=== PATIENT | female | born 2000 | race Caucasian/White ===

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

== ENCOUNTER 2022-01-11 19:02 | Emergency (ER) | payer OTHER, SELFPAY ==
[2022-01-11] VITALS (7 sets, daily range): BP systolic 114–141; BP diastolic 77–104; PULSE 99–127; RESP 22; TEMP 36.3; O2SAT 95–100; BMI 29.2
--- NOTE | 2022-01-11 19:33 | PC.NURSE ---
pt states she didn't think of how to kill herself before but would have dreams of jumping.
[2022-01-11 20:04] LABS: Add Manual Diff / Slide Review NO; Basophils Absolute Auto 0 /uL (0-100); Basophils Percent Auto 0.2 % (0-2); Eosinophils Absolute Auto 100 /uL (0-450); Eosinophils Percent Auto 0.6 % (2-4); Hematocrit 39.2 % (36-46); Hemoglobin 13.7 g/dL (12.0-16.0); Lymphocytes Absolute Auto 700 /uL (1100-4500); Lymphocytes Percent Auto 3.9 % (25-40); Mean Corpuscular Hemoglobin 29.4 PG (26-34); Monocytes Absolute Auto 800 /uL (0-900); Monocytes Percent Auto 4.3 % (3-14); Neutrophils Absolute Auto 16300 /uL (1500-7000); Platelet Count 208 X10^3/uL (150-400); Red Blood Cell Count 4.67 X10^6/uL (4.0-5.2); Red Cell Distribution Width 12.7 % (11.6-14.8); White Blood Cell Count 17.9 X10^3/uL (4.5-11.0)
--- NOTE | 2022-01-11 20:22 | PC.NURSE ---
spoke with poison control. said to do labs and ekg, said watch time for adderall was 8hours and sertraline was 6-12hours.
[2022-01-11 20:26] LABS: Acetaminophen < 10 ug/mL (10-30); Alanine Aminotransferase 27 IU/L (<35); Albumin 4.4 g/dL (3.5-5.0); Albumin Globulin Ratio 1.1 (1.0-2.8); Alkaline Phosphatase 55 U/L (38-126); Aspartate Aminotransferase 34 IU/L (14-36); BUN Creatinine Ratio 16.7 (6-22); Bilirubin Total 1.6 mg/dL (0.2-1.3); Blood Urea Nitrogen 12 mg/dL (7-17); Calcium 9.6 mg/dL (8.4-10.2); Carbon Dioxide 22 mmol/L (22-32); Chloride 104 mmol/L (98-107); Estimated Glomerular Filt Rate > 60 mL/min (>60); Ethanol (ETOH) < 10 mg/dL; Glucose 119 mg/dL (70-100); HEMOLYSIS < 15 (0-50); Potassium 3.9 mmol/L (3.4-5.1); Salicylate < 1.0 mg/dL (<20); Sodium 137 mmol/L (137-145); Total Protein 8.4 g/dL (6.3-8.2)
[2022-01-11 20:56] LABS: Thyroid Stimulating Hormone 0.679 uIU/mL (0.47-4.68)
--- NOTE | 2022-01-11 21:54 | ED_ITS ---
HPI - Psych General Chief Complaint: Psychiatric Symptoms Stated Complaint: OD on ADHD meds and antidepressants Time Seen by Provider: 01/11/22 19:43 Source: patient Mode of arrival: Ambulatory Limitations: no limitations History of Present Illness HPI Narrative: Patient is a 21-year-old female who is brought to the emergency department by her mom and dad for evaluation of an intentional medication overdose. Patient states that earlier today she was caught at home with her boyfriend. She does live with her parents. She was concerned about the way that her parents were going to act to this. She thought she was going to get kicked out of the house. She started packing her stuff and saw her pills. She then took an unknown amount of her Adderall and also her sertraline. These were her medications. She is unsure as to how much she took of each. She still has a half a bottle the sertraline at home. She did this at approximately 1000 hours this morning. She denies any other ingestions. No alcohol. She is never tried to kill herself in the past. These medications are prescribed by her primary doctor. She is not see a mental health professional. Has never been admitted to the hospital in the past for mental health issues. She started to get lightheaded. Is having nausea. When her mother got home from work she told her mother what she did and she was brought to the emergency department. Related Data Home Medications Medication Instructions Recorded Confirmed bismuth subsalicylate 525 mg/15 mL ##0 10/16/12 oral suspension (Pepto-Bismol Max St) Allergies Allergy/AdvReac Type Severity Reaction Status Date / Time No Known Drug Allergies Allergy Verified 12/20/17 19:17 Review of Systems Review of Systems ROS Unobtainable: All systems reviewed & are unremarkable except as noted in HPI and below Patient History Medical History ADHD Social History Smoking Status: Never smoker Smoking Status: Never smoker Substance Use Type: does not use Exam Initial Vital Signs Initial Vital Signs: Vital Signs Temperature 97.3 F L 01/11/22 19:16 Pulse Rate 124 H 01/11/22 19:16 Respiratory Rate 22 01/11/22 19:16 Blood Pressure 134/88 01/11/22 19:16 Pulse Oximetry 100 01/11/22 19:16 Oxygen Delivery Method 01/11/22 19:16 Const General: cooperative and comfortable HENMT Head: normal to inspection and normocephalic Resp Effort & Inspection: normal respiratory effort Auscultation: clear to auscultation bilaterally Cardio Rate: regular rate Rhythm: regular rhythm GI Inspection: normal to inspection Skin General: no rashes or lesions noted Neuro General: patient alert, patient awake, patient oriented x3 and moves all extremities Cognition: normal cognition Speech: speech normal Extrem General: normal to inspection and capillary refill normal Psych Appearance: grossly normal and well kempt Course Orders Ordered: ED Orders 01/11/22 19:45 Acetaminophen Stat Complete Blood Count AUTO DIFF Stat Comprehensive Metabolic Panel Stat Ethanol (ETOH) Stat Salicylate Stat Thyroid Stimulating Hormone Stat 01/11/22 22:10 Urine Culture Stat Urine Drug Screen, Rapid Stat Urine Microscopic Stat 01/12/22 01:02 COVID19 -Nasal RAPID/Pre-Proc Stat Discontinued Medications Benzocaine (Benzocaine/Menthol 1 José Luis Pkt) 1 each PO NOW ONE Stop: 01/12/22 00:43 Last Admin: 01/12/22 01:00 Dose: 1 each Documented By: KAITLIN Sodium Chloride (Normal Saline 0.9%) 1,000 mls @ 1,000 mls/hr IV BOLUS ONE Stop: 01/12/22 02:39 Last Admin: 01/12/22 02:55 Dose: Not Given Documented By: KAITLIN Ondansetron HCl (Ondansetron 4 Mg Odt) 4 mg SL NOW ONE Stop: 01/11/22 21:55 Last Admin: 01/11/22 22:15 Dose: 4 mg Documented By: OCTAVIO Ondansetron HCl (Ondansetron 4 Mg/2 Ml Inj) 4 mg IV NOW ONE Stop: 01/12/22 01:41 Last Admin: 01/12/22 02:54 Dose: Not Given Documented By: KAITLIN Ondansetron HCl (Ondansetron 4 Mg Odt) 4 mg PO NOW ONE Stop: 01/12/22 01:48 Last Admin: 01/12/22 02:03 Dose: 4 mg Documented By: OCTAVIO Vital Signs Vital signs: Vital Signs - 8 hr 01/11/22 21:34 01/11/22 21:33 01/11/22 21:33 Pulse Rate 122 H 127 H Blood Pressure 141/104 H 141/104 H Pulse Oximetry 96 95 Oxygen Delivery Method Room Air 01/11/22 22:00 01/11/22 22:00 01/11/22 22:32 Pulse Rate 99 H Blood Pressure 138/88 124/78 Pulse Oximetry 99 Oxygen Delivery Method 01/11/22 22:32 01/11/22 23:00 01/11/22 23:00 Pulse Rate 109 H 110 H Blood Pressure 114/80 Pulse Oximetry 96 96 Oxygen Delivery Method 01/11/22 23:30 01/11/22 23:30 01/12/22 00:30 Pulse Rate 100 H Blood Pressure 124/77 137/76 Pulse Oximetry 96 Oxygen Delivery Method 01/12/22 00:30 01/12/22 01:00 01/12/22 01:00 Pulse Rate 87 90 Blood Pressure 118/73 Pulse Oximetry 95 96 Oxygen Delivery Method 01/12/22 01:30 01/12/22 01:30 01/12/22 02:00 Pulse Rate 97 H Blood Pressure 112/76 121/75 Pulse Oximetry 95 Oxygen Delivery Method 01/12/22 02:00 01/12/22 02:30 01/12/22 02:30 Pulse Rate 86 93 H Blood Pressure 109/61 Pulse Oximetry 96 95 Oxygen Delivery Method 01/12/22 03:00 01/12/22 03:00 01/12/22 03:30 Pulse Rate 90 Blood Pressure 114/73 126/74 Pulse Oximetry 95 Oxygen Delivery Method 01/12/22 03:30 Pulse Rate 94 H Blood Pressure Pulse Oximetry 95 Oxygen Delivery Method [facility] - Psych Lab Data Attestation: I reviewed the patient's lab results. Result diagrams: 01/11/22 19:45 01/11/22 19:45 Labs: Lab Results 01/11/22 01/11/22 01/11/22 Range/Units 19:45 19:45 19:45 WBC 17.9 H (4.5-11.0) X10^3/uL RBC 4.67 (4.0-5.2) X10^6/uL Hgb 13.7 (12.0-16.0) g/dL Hct 39.2 (36-46) % MCV 84.0 (80-100) fL MCH 29.4 (26-34) PG MCHC 35.0 (30-36) % RDW 12.7 (11.6-14.8) % Plt Count 208 (150-400) X10^3/uL Neut % (Auto) 91.0 H (50-75) % Lymph % (Auto) 3.9 L (25-40) % [place] % (Auto) 4.3 (3-14) % Eos % (Auto) 0.6 L (2-4) % Baso % (Auto) 0.2 (0-2) % Neut # (Auto) 15501 H (5249-9225) /uL Lymph # (Auto) 700 L (1103-3336) /uL [place] # (Auto) 800 (0-900) /uL Eos # (Auto) 100 (0-450) /uL Baso # (Auto) 0 (0-100) /uL Sodium 137 (137-145) mmol/L Potassium 3.9 (3.4-5.1) mmol/L Chloride 104 (98-107) mmol/L Carbon Dioxide 22 (22-32) mmol/L BUN 12 (7-17) mg/dL Creatinine 0.72 (0.52-1.04) mg/dL Estimated GFR > 60 (>60) mL/min BUN/Creatinine Ratio 16.7 (6-22) Glucose 119 H (70-100) mg/dL Calcium 9.6 (8.4-10.2) mg/dL Total Bilirubin 1.6 H (0.2-1.3) mg/dL AST 34 (14-36) IU/L ALT 27 (<35) IU/L Alkaline Phosphatase 55 (38-126) U/L Total Protein 8.4 H (6.3-8.2) g/dL Albumin 4.4 (3.5-5.0) g/dL Globulin 4.0 (1.7-4.1) g/dL Albumin/Globulin Ratio 1.1 (1.0-2.8) TSH (0.47-4.68) uIU/mL Urine RBC (0-5/HPF) Urine WBC (0-5/HPF) Ur Squamous Epith Cells (0-5/HPF) Urine Bacteria (None) Ur Culture Indicated? Micro UA Comment Salicylates < 1.0 (<20) mg/dL U Opiates 300ng/mL cut (Negative) Ur Oxycodone Screen (Negative) Urine Methadone Screen (Negative) Acetaminophen < 10 (10-30) ug/mL Ur Barbiturates Screen (Negative) U Tricyclic Antidepress (Negative) Ur Phencyclidine Scrn (Negative) Ur Amphetamines Screen (Negative) U Methamphetamines Scrn (Negative) Ur MDMA Scrn (Ecstasy) (Negative) U Benzodiazepines Scrn (Negative) Urine Cocaine Screen (Negative) U Marijuana (THC) Screen (Negative) Ethyl Alcohol < 10 ( - 10) mg/dL SARS-CoV-2 (PCR) (Negative) 01/11/22 01/11/22 01/11/22 Range/Units 19:45 22:10 22:10 WBC (4.5-11.0) X10^3/uL RBC (4.0-5.2) X10^6/uL Hgb (12.0-16.0) g/dL Hct (36-46) % MCV (80-100) fL MCH (26-34) PG MCHC (30-36) % RDW (11.6-14.8) % Plt Count (150-400) X10^3/uL Neut % (Auto) (50-75) % Lymph % (Auto) (25-40) % [place] % (Auto) (3-14) % Eos % (Auto) (2-4) % Baso % (Auto) (0-2) % Neut # (Auto) (3762-2762) /uL Lymph # (Auto) (9759-2470) /uL [place] # (Auto) (0-900) /uL Eos # (Auto) (0-450) /uL Baso # (Auto) (0-100) /uL Sodium (137-145) mmol/L Potassium (3.4-5.1) mmol/L Chloride (98-107) mmol/L Carbon Dioxide (22-32) mmol/L BUN (7-17) mg/dL Creatinine (0.52-1.04) mg/dL Estimated GFR (>60) mL/min BUN/Creatinine Ratio (6-22) Glucose (70-100) mg/dL Calcium (8.4-10.2) mg/dL Total Bilirubin (0.2-1.3) mg/dL AST (14-36) IU/L ALT (<35) IU/L Alkaline Phosphatase (38-126) U/L Total Protein (6.3-8.2) g/dL Albumin (3.5-5.0) g/dL Globulin (1.7-4.1) g/dL Albumin/Globulin Ratio (1.0-2.8) TSH 0.679 (0.47-4.68) uIU/mL Urine RBC 1-5/hpf (0-5/HPF) Urine WBC 10-30/hpf H (0-5/HPF) Ur Squamous Epith Cells 1-5 /hpf (0-5/HPF) Urine Bacteria Many (>30) H (None) Ur Culture Indicated? Culture not indicate Micro UA Comment * Salicylates (<20) mg/dL U Opiates 300ng/mL cut Negative (Negative) Ur Oxycodone Screen Negative (Negative) Urine Methadone Screen Negative (Negative) Acetaminophen (10-30) ug/mL Ur Barbiturates Screen Negative (Negative) U Tricyclic Antidepress Negative (Negative) Ur Phencyclidine Scrn Negative (Negative) Ur Amphetamines Screen Positive H (Negative) U Methamphetamines Scrn Negative (Negative) Ur MDMA Scrn (Ecstasy) Negative (Negative) U Benzodiazepines Scrn Negative (Negative) Urine Cocaine Screen Negative (Negative) U Marijuana (THC) Screen Negative (Negative) Ethyl Alcohol ( - 10) mg/dL SARS-CoV-2 (PCR) (Negative) 01/12/22 Range/Units 01:02 WBC (4.5-11.0) X10^3/uL RBC (4.0-5.2) X10^6/uL Hgb (12.0-16.0) g/dL Hct (36-46) % MCV (80-100) fL MCH (26-34) PG MCHC (30-36) % RDW (11.6-14.8) % Plt Count (150-400) X10^3/uL Neut % (Auto) (50-75) % Lymph % (Auto) (25-40) % [place] % (Auto) (3-14) % Eos % (Auto) (2-4) % Baso % (Auto) (0-2) % Neut # (Auto) (4691-5887) /uL Lymph # (Auto) (2509-0028) /uL [place] # (Auto) (0-900) /uL Eos # (Auto) (0-450) /uL Baso # (Auto) (0-100) /uL Sodium (137-145) mmol/L Potassium (3.4-5.1) mmol/L Chloride (98-107) mmol/L Carbon Dioxide (22-32) mmol/L BUN (7-17) mg/dL Creatinine (0.52-1.04) mg/dL Estimated GFR (>60) mL/min BUN/Creatinine Ratio (6-22) Glucose (70-100) mg/dL Calcium (8.4-10.2) mg/dL Total Bilirubin (0.2-1.3) mg/dL AST (14-36) IU/L ALT (<35) IU/L Alkaline Phosphatase (38-126) U/L Total Protein (6.3-8.2) g/dL Albumin (3.5-5.0) g/dL Globulin (1.7-4.1) g/dL Albumin/Globulin Ratio (1.0-2.8) TSH (0.47-4.68) uIU/mL Urine RBC (0-5/HPF) Urine WBC (0-5/HPF) Ur Squamous Epith Cells (0-5/HPF) Urine Bacteria (None) Ur Culture Indicated? Micro UA Comment Salicylates (<20) mg/dL U Opiates 300ng/mL cut (Negative) Ur Oxycodone Screen (Negative) Urine Methadone Screen (Negative) Acetaminophen (10-30) ug/mL Ur Barbiturates Screen (Negative) U Tricyclic Antidepress (Negative) Ur Phencyclidine Scrn (Negative) Ur Amphetamines Screen (Negative) U Methamphetamines Scrn (Negative) Ur MDMA Scrn (Ecstasy) (Negative) U Benzodiazepines Scrn (Negative) Urine Cocaine Screen (Negative) U Marijuana (THC) Screen (Negative) Ethyl Alcohol ( - 10) mg/dL SARS-CoV-2 (PCR) Negative (Negative) Point of Care Testing Test Results Negative Urine Dip Bedside Urine Glucose Negative Bedside Urine Bilirubin - Negative Bedside Urine Ketone +/- 5 Urine Specific [place] 1.020 Bedside Urine Occult Blood + Bedside Urine pH 6.0 Bedside Urine Protein + 30 Bedside Urine Urobilinogen - Negative Bedside Urine Nitrite + Positive Bedside Urine Leukocytes + 70 Esterase ECG Data Attestation: I personally reviewed and interpreted this ECG as follows: Interpretation: Sinus rhythm Ventricular rate 90 QRS 72 milliseconds QTC [address] T wave changes MDM Narrative Medical decision making narrative: Patient is medically cleared. Nursing staff contacted poison control who stated that observation should be between 6 and 12 hours. Patient has been observed for longer than 12 hours. She was tachycardic upon arrival but this improved. She was also having some vomiting this improved with Zofran. Patient then developed a sore throat. Her throat exam was unremarkable. Had a discussion with her and her parents who were at bedside. Initially they patient was desiring voluntary admission however after a period of time in the ER the patient now states she would like to be discharged home. Patient was able to contract for safety. She stated that she was no longer suicidal. That she felt comfortable going home. That she would tell her parents or return to the emergency department if she started to have thoughts of hurting herself once again. I did contact the [facility] and gave them the patient's contact information and they will call her later on today to check in on her. The patient stated that she felt comfortable with this. Patient will be discharged home with family. Discharge Plan Departure Patient Disposition: Home Clinical Impression: Deliberate medication overdose Activity Restrictions/Additional Instructions: You should be receiving a call from the [facility] later on today at the number that you provided me. This is to check in on you to see how you are feeling. You can return to the emergency department at any point. Please tell your parents or return to the emergency department if you start to have thoughts of hurting yourself again. Prescriptions: No Action bismuth subsalicylate [Pepto-Bismol Max St] 525 MG/15 ML suspension Qty: 0 Referrals: Bridget Billingsley MD [Primary Care Provider] -
--- NOTE | 2022-01-11 22:00 | PC.NURSE ---
Ambulatory to the bathroom with steady gait - clean catch UA collected
[2022-01-11] MEDS: ONDANSETRON 4 MG ODT SL (22:15)
--- NOTE | 2022-01-11 22:15 | PC.NURSE ---
Medicated for nausea - no vomiting noted at this time
[2022-01-11 22:46] LABS: Ur Creatinine 20 (Normal)
[2022-01-11 22:47] LABS: UR Morphine/Opiate cutoff 300 Negative (Negative); Ur Specific Gravity 1.025 (Normal); Urine Amphetamines Positive (Negative); Urine Barbiturates Negative (Negative); Urine Benzodiazepines Negative (Negative); Urine Cocaine Negative (Negative); Urine MDMA Negative (Negative); Urine Methadone Negative (Negative); Urine Methamphetamines Negative (Negative); Urine Oxycodone Negative (Negative); Urine Phencyclidine Negative (Negative); Urine Tetrahydrocannabinol Negative (Negative); Urine Tricyclic Antidepressant Negative (Negative); Urine pH 5 (Normal)
--- NOTE | 2022-01-11 23:00 | PC.NURSE ---
MD at bedside - family present
[2022-01-11 23:14] LABS: Bacteria Urine Many (>30); RBC Urine 1-5/HPF (0-5/HPF); Squamous Epithelial Cell Urine 1-5 /HPF (0-5/HPF); WBC Urine 10-30/HPF (0-5/HPF)
--- NOTE | 2022-01-11 23:45 | PC.NURSE ---
Resting quietly in room with parents at bedside - no needs voiced at this time
[2022-01-12] VITALS (9 sets, daily range): BP systolic 109–137; BP diastolic 61–80; PULSE 82–111; O2SAT 95–96
--- NOTE | 2022-01-12 00:30 | PC.NURSE ---
C/O throat feeling scratchy and painful - MD aware - orders for lozenges received
--- NOTE | 2022-01-12 00:46 | PC.NURSE ---
patient laying down, states has a sore throat and wants something for it. Doctor and nurse aware.
[2022-01-12] MEDS: BENZOCAINE/MENTHOL 1 LOZ PKT 1 EACH PO (01:00)
--- NOTE | 2022-01-12 01:00 | PC.NURSE ---
layed patients head down, brought in comfy recliner for family member
[2022-01-12 01:26] LABS: COVID19 -Nasal RAPID Negative (Negative)
--- NOTE | 2022-01-12 01:40 | PC.NURSE ---
MD at bedside to speak with patient and family
--- NOTE | 2022-01-12 02:00 | PC.NURSE ---
medicated for increasing nausea - no vomiting noted - family at bedside
[2022-01-12] MEDS: ONDANSETRON 4 MG ODT PO (02:03)
--- NOTE | 2022-01-12 02:30 | PC.NURSE ---
Resting quietly in NAD - no needs voiced - PWD with respirations equal and unlabored bilaterally - family remains at bedside
--- NOTE | 2022-01-12 03:17 | PC.NURSE ---
Patient sitting at bedside, restless in bed. Pt has not slept much. Parents in room sleeping
--- NOTE | 2022-01-12 03:45 | PC.NURSE ---
No changes in pt status at this time
--- NOTE | 2022-01-12 04:20 | PC.NURSE ---
Dad approaches RN station and states that the patient now would like to go home - does not want to stay for inpatient voluntary treatment - MD smart
--- NOTE | 2022-01-12 04:30 | PC.NURSE ---
MD at bedside to speak with pt - parents remain at bedside
== END 2022-01-12 05:04 | disposition home or self-care (01) ==
PROVIDERS: Emergency Provider Emergency Medicine; Family Provider Family Medicine; PCP Family Medicine
DX: T43.622A Poisoning by amphetamines, intentional self-harm, initial encounter (principal); T43.222A Poisoning by selective serotonin reuptake inhibitors, intentional self-harm, initial encounter; Z20.822 Contact with and (suspected) exposure to COVID-19
CPT/HCPCS: 80053; 80305; 80320; 80329; 81003; 81015; 81025; 84443; 85025; 87077; 87086; 87186; 87635; 93005; 93010; 99284; C9803; G0480

== ENCOUNTER 2024-02-24 19:49 | Emergency (ER) | payer OTHER, SELFPAY ==
[2024-02-24 19:53] VITALS: BP 112/76; PULSE 76; RESP 18; TEMP 37.6; O2SAT 72; BMI 38.4
--- NOTE | 2024-02-24 20:02 | DI.US.S_ITS ---
PROCEDURE: US PELVIC COMPLETE INDICATIONS: severe LLQ pain/cramping TECHNIQUE: Real-time scanning was performed of the pelvic organs, with image documentation. Additional endovaginal scanning was necessary due to incomplete visualization of the adnexal and endometrial structures by transabdominal scanning. COMPARISON: None. FINDINGS: Uterus: Uterus is retroverted and normal in size at 6.7 x 4.6 x 3.9 cm. The myometrium is homogeneous. The endometrium measures 6 mm combined thickness. Ovaries: The right ovary measures 3.1 x 2.3 x 2.1 cm, with a calculated ovarian volume of 7.8 cc. Dominant follicle in the right ovary measuring 2.1 cm. The left ovary measures 4.1 x 1.7 x 2.0 cm, with a calculated ovarian volume of 7.3 cc. The ovaries have a normal sonographic appearance with flow bilaterally. Less than 12 follicles can be seen in each ovary. No adnexal masses are seen. Other: No pathologic free abdominal or pelvic fluid. IMPRESSION: Ovaries are normal in appearance with flow. No cause for patient's pain is identified. We strive to produce accurate, complete, and clear reports of imaging services. To assist us in improving patient care, this report was composed using standard report templates and voice recognition software. Therefore, it may contain abnormal punctuation, insertions and/or omissions. Occasional wrong-word or sound-alike substitutions may occur. Though we review the report and make efforts to correct it, we do recommend that the report be read carefully in proper context to recognize any text inaccuracies. Dictated by: Vinh Lazo M.D. on 02/24/2024 at 22:14 Approved by: Vinh Lazo M.D. on 02/24/2024 at 22:16
--- NOTE | 2024-02-24 20:02 | EKG_ITS ---
[place] [id number] [place] [id number] Test Date: 2024-02-24 Pat Name: Dick Garcia Department: [facility] Room: Gender: Female [employer] Supervisor: CARLOS : 2000 Requested By: Order Number: [id number] Reading MD: Anthony Erazo MD Measurements Intervals [place] Rate: 72 P: 38 PA: 80 QRS: 73 QRSD: 74 T: 34 QT: 392 QTc: 429 Interpretive Statements Sinus rhythm with short PA with premature supraventricular complexes Electronically Signed On 02-25-2024 10:35:54 PST by Anthony Erazo MD
[2024-02-24 20:35] VITALS: BP 134/90; PULSE 65; RESP 18; O2SAT 95
[2024-02-24 20:36] VITALS: BP 134/90; PULSE 64; O2SAT 99
[2024-02-24 20:37] LABS: Alanine Aminotransferase 30 IU/L (<35); Albumin 4.2 g/dL (3.5-5.0); Albumin Globulin Ratio 1.1 (1.0-2.8); Alkaline Phosphatase 83 U/L (38-126); Aspartate Aminotransferase 38 IU/L (14-36); BUN Creatinine Ratio 22.1 (6-22); Bilirubin Total 0.8 mg/dL (0.2-1.3); Blood Urea Nitrogen 15 mg/dL (7-17); Carbon Dioxide 26 mmol/L (22-32); Chloride 105 mmol/L (98-107); Estimated Glomerular Filt Rate > 60 mL/min (>60); Globulin 3.7 g/dL (1.7-4.1); Glucose 90 mg/dL (70-100); HEMOLYSIS < 15 (0-50); Lipase 61 U/L (23-300); Sodium 135 mmol/L (137-145); Total Protein 7.9 g/dL (6.3-8.2)
[2024-02-24 20:38] LABS: Add Manual Diff / Slide Review NO; Basophils Absolute Auto 100 /uL (0-100); Eosinophils Absolute Auto 600 /uL (0-450); Eosinophils Percent Auto 6.3 % (2-4); Hemoglobin 13.4 g/dL (12.0-16.0); Lymphocytes Absolute Auto 3100 /uL (1100-4500); Mean Corpuscular HGB Conc 33.6 % (30-36); Mean Corpuscular Hemoglobin 27.9 PG (26-34); Mean Corpuscular Volume 83.1 fL (80-100); Monocytes Absolute Auto 700 /uL (0-900); Monocytes Percent Auto 6.9 % (3-14); Neutrophils Absolute Auto 5000 /uL (1500-7000); Neutrophils Percent Auto 52.8 % (50-75); Platelet Count 346 X10^3/uL (150-400); Red Blood Cell Count 4.81 X10^6/uL (4.0-5.2); Red Cell Distribution Width 14.1 % (11.6-14.8); White Blood Cell Count 9.5 X10^3/uL (4.5-11.0)
[2024-02-24] MEDS: ONDANSETRON 4 MG/2 ML INJ IV (20:39)
[2024-02-24 21:00] VITALS: BP 141/97; PULSE 86; O2SAT 99
[2024-02-24] MEDS: MORPHINE 4 MG/ML INJ IV (21:07)
[2024-02-24] MEDS: LORazepam 2 MG/ML INJ IV (21:25)
[2024-02-24 21:30] VITALS: BP 147/79; PULSE 73; O2SAT 95
[2024-02-24 22:00] VITALS: BP 138/87; PULSE 67; O2SAT 99
--- NOTE | 2024-02-24 22:54 | ED_ITS ---
HPI - Abdominal Pain General Chief Complaint: Abdominal Pain Stated Complaint: abd pain Time Seen by Provider: 02/24/24 20:02 Source: patient and family Mode of arrival: Ambulatory History of Present Illness HPI narrative: 23-year-old female presents for left-sided pelvic pain. Patient had menstrual cycle start yesterday. Around 8:00 a.m. began to have severe pain. She went to the walk-in clinic and she was told that she might have a urinary tract infection, but if she had worse pain she should come to the ER. Further history difficult to obtain as patient was hyperventilating and grabbing her stomach. Related Data Home Medications Medication Instructions Recorded Confirmed bismuth subsalicylate 525 mg/15 mL ##0 10/16/12 oral suspension (Pepto-Bismol Max St) Previous Rx's Medication Instructions Recorded cephalexin 500 mg capsule 500 mg PO BID #10 caps 01/13/22 Allergies Allergy/AdvReac Type Severity Reaction Status Date / Time No Known Drug Allergies Allergy Verified 12/20/17 19:17 Patient History Medical History ADHD Social History Smoking Status: Never smoker Smoking Status: Never smoker alcohol intake frequency: holidays/special occasions only Substance Use Type: does not use Exam Initial Vital Signs Initial Vital Signs: Vital Signs Temperature 99.6 F 02/24/24 19:53 Pulse Rate 76 02/24/24 19:53 Respiratory Rate 18 02/24/24 19:53 Blood Pressure 112/76 02/24/24 19:53 Pulse Oximetry 72 L 02/24/24 19:53 Oxygen Delivery Method Room Air 02/24/24 19:53 Const: Awake, alert, anxious, in pain GI: Soft, left lower quadrant tenderness to deep palpation Skin: Warm, Dry, intact, no rashes Neuro: AO x3, CN II-XII grossly intact, moves all extremities Course Orders Ordered: ED Orders 02/24/24 19:56 EKG-12 Lead Stat 02/24/24 20:02 US pelvic complete Stat 02/24/24 20:10 Complete Blood Count AUTO DIFF Stat Comprehensive Metabolic Panel Stat Lipase Stat 02/25/24 00:01 Urine Culture Stat Urine Microscopic Stat Discontinued Medications Lorazepam (Lorazepam 2 Mg/Ml Inj) 2 mg IV NOW ONE Stop: 02/24/24 21:22 Last Admin: 02/24/24 21:25 Dose: 2 mg Documented By: IGGY Morphine Sulfate (Morphine 4 Mg/Ml Inj) 4 mg IV NOW ONE Stop: 02/24/24 21:04 Last Admin: 02/24/24 21:07 Dose: 4 mg Documented By: VENUS Ondansetron HCl (Ondansetron 4 Mg/2 Ml Inj) 4 mg IV NOW PRN PRN Reason: Nausea And Vomiting Last Admin: 02/24/24 20:39 Dose: 4 mg Documented By: VENUS Ondansetron HCl (Ondansetron 4 Mg Odt) 4 mg PO NOW PRN PRN Reason: Nausea And Vomiting Vital Signs Vital signs: Vital Signs - 8 hr 02/24/24 19:53 02/24/24 20:35 02/24/24 20:36 Temperature 99.6 F Pulse Rate 76 65 64 Respiratory Rate 18 18 Blood Pressure 112/76 134/90 Pulse Oximetry 72 L 95 99 Oxygen Delivery Method Room Air Room Air 02/24/24 20:36 02/24/24 21:00 02/24/24 21:00 Temperature Pulse Rate 86 Respiratory Rate Blood Pressure 134/90 141/97 H Pulse Oximetry 99 Oxygen Delivery Method 02/24/24 21:30 02/24/24 21:30 02/24/24 22:00 Temperature Pulse Rate 73 67 Respiratory Rate Blood Pressure 147/79 H Pulse Oximetry 95 99 Oxygen Delivery Method 02/24/24 22:00 02/25/24 01:36 Temperature Pulse Rate 98 H Respiratory Rate 16 Blood Pressure 138/87 131/61 Pulse Oximetry 100 Oxygen Delivery Method Room Air MDM - Abdominal Pain Differential Diagnosis Differential diagnosis: Likely abdominal pain and other (ovarian cyst, ovarian torsion) Lab Data 02/24/24 20:10 02/24/24 20:10 Labs: Lab Results 02/24/24 02/25/24 Range/Units 20:10 00:01 WBC 9.5 (4.5-11.0) X10^3/uL RBC 4.81 (4.0-5.2) X10^6/uL Hgb 13.4 (12.0-16.0) g/dL Hct 40.0 (36-46) % MCV 83.1 (80-100) fL MCH 27.9 (26-34) PG MCHC 33.6 (30-36) % RDW 14.1 (11.6-14.8) % Plt Count 346 (150-400) X10^3/uL Neut % (Auto) 52.8 (50-75) % Lymph % (Auto) 33.0 (25-40) % [place] % (Auto) 6.9 (3-14) % Eos % (Auto) 6.3 H (2-4) % Baso % (Auto) 1.0 (0-2) % Neut # (Auto) 5000 (4861-1347) /uL Lymph # (Auto) 3100 (1483-5531) /uL [place] # (Auto) 700 (0-900) /uL Eos # (Auto) 600 H (0-450) /uL Baso # (Auto) 100 (0-100) /uL Sodium 135 L (137-145) mmol/L Potassium 4.0 (3.4-5.1) mmol/L Chloride 105 (98-107) mmol/L Carbon Dioxide 26 (22-32) mmol/L BUN 15 (7-17) mg/dL Creatinine 0.68 (0.52-1.04) mg/dL Estimated GFR > 60 (>60) mL/min BUN/Creatinine Ratio 22.1 H (6-22) Glucose 90 (70-100) mg/dL Calcium 9.0 (8.4-10.2) mg/dL Total Bilirubin 0.8 (0.2-1.3) mg/dL AST 38 H (14-36) IU/L ALT 30 (<35) IU/L Alkaline Phosphatase 83 (38-126) U/L Total Protein 7.9 (6.3-8.2) g/dL Albumin 4.2 (3.5-5.0) g/dL Globulin 3.7 (1.7-4.1) g/dL Albumin/Globulin Ratio 1.1 (1.0-2.8) Lipase 61 (23-300) U/L Urine RBC >100/hpf H (0-5/HPF) Urine WBC 0-1/hpf (0-5/HPF) Ur Squamous Epith Cells 0-1 /hpf (0-5/HPF) Amorphous Sediment 4+ Urine Bacteria Occasional (0-1) (None) Ur Culture Indicated? Specimen cultured Vol Urine Centrifuged 10ml (spun) Point of care testing: Point of Care Testing Test Results Negative Urine Dip Bedside Urine Glucose Negative Bedside Urine Bilirubin - Negative Bedside Urine Ketone - Negative Urine Specific [place] 1.010 Bedside Urine Occult Blood +++ Bedside Urine pH 6.0 Bedside Urine Protein + 30 Bedside Urine Urobilinogen - Negative Bedside Urine Nitrite - Negative Bedside Urine Leukocytes + 70 Esterase Imaging Data US - COMMUNICATIONS TECHNOLOGIST: Radiologist's Impression: PROCEDURE: US PELVIC COMPLETE INDICATIONS: severe LLQ pain/cramping TECHNIQUE: Real-time scanning was performed of the pelvic organs, with image documentation. Additional endovaginal scanning was necessary due to incomplete visualization of the adnexal and endometrial structures by transabdominal scanning. COMPARISON: None. FINDINGS: Uterus: Uterus is retroverted and normal in size at 6.7 x 4.6 x 3.9 cm. The myometrium is homogeneous. The endometrium measures 6 mm combined thickness. Ovaries: The right ovary measures 3.1 x 2.3 x 2.1 cm, with a calculated ovarian volume of 7.8 cc. Dominant follicle in the right ovary measuring 2.1 cm. The left ovary measures 4.1 x 1.7 x 2.0 cm, with a calculated ovarian volume of 7.3 cc. The ovaries have a normal sonographic appearance with flow bilaterally. Less than 12 follicles can be seen in each ovary. No adnexal masses are seen. Other: No pathologic free abdominal or pelvic fluid. IMPRESSION: Ovaries are normal in appearance with flow. No cause for patient's pain is identified. We strive to produce accurate, complete, and clear reports of imaging services. To assist us in improving patient care, this report was composed using standard report templates and voice recognition software. Therefore, it may contain abnormal punctuation, insertions and/or omissions. Occasional wrong-word or sound-alike substitutions may occur. Though we review the report and make efforts to correct it, we do recommend that the report be read carefully in proper context to recognize any text inaccuracies. Dictated by: Vinh Lazo M.D. on 02/24/2024 at 22:14 Approved by: Vinh Lazo M.D. on 02/24/2024 at 22:16 MDM Narrative Medical decision making narrative: L sided pelvic pain different from menstrual pain. Patient hyperventilating and difficult to obtain additional history. US called for pelvic US. Morphine ordered for pain. US informed me patient unable to tolerate due to pain, continues to hyperventilate. Ativan ordered. Pain resolved after ativan administration. Sleeping comfortably. Labs, imaging unremarkable. Repeat abd exam soft, no discomfort to light or deep palpation. Patient observed in the emergency department for numerous hours without return of symptoms. UA negative for signs of infection. Blood present, however she was currently menstruating. Patient counseled to take Tylenol and ibuprofen at home as needed for discomfort. If she has recurrent pelvic pains she was follow up with OBGYN or primary care. ED return precautions discussed at bedside. Patient expressed understanding of the plan and is in agreement at this time. All questions answered at the time of discharge. Discharge Plan Departure Patient Disposition: Home Clinical Impression: Pelvic pain Instructions: DI for Pelvic Pain Activity Restrictions/Additional Instructions: Your laboratory work today did not show any signs of infection or inflammation. Your urine did have some blood in it, however this is normal when you are on your menstrual cycle. The ultrasound of your ovaries did not show any cysts, masses, or evidence of torsion. Take Tylenol and ibuprofen at home as needed for your symptoms. If you have more recurrent pelvic pains I would recommend seeing an OBGYN, or you may follow up with your primary care doctor. Prescriptions: No Action bismuth subsalicylate [Pepto-Bismol Max St] 525 MG/15 ML suspension Qty: 0 cephalexin 500 mg capsule 500 mg PO BID Qty: 10 0RF Referrals: Chanelle Tang MD [Physician] - Bridget Billingsley MD [Primary Care Provider] - Stand Alone Forms: Patient Portal/API/Survey, Work Release Note
[2024-02-25 01:17] LABS: Amorphous Sediment Urine 4+; Bacteria Urine Occasional (0-1); Culture Indicated Urine Specimen Cultured; RBC Urine >100/HPF (0-5/HPF); Squamous Epithelial Cell Urine 0-1 /HPF (0-5/HPF); Urine Volume 10mL (spun); WBC Urine 0-1/HPF (0-5/HPF)
[2024-02-25 01:36] VITALS: BP 131/61; PULSE 98; RESP 16; O2SAT 100
== END 2024-02-25 01:37 | disposition home or self-care (01) ==
PROVIDERS: Emergency Provider Emergency Medicine; Family Provider Family Medicine; PCP Family Medicine
DX: R10.2 Pelvic and perineal pain (principal); R06.4 Hyperventilation
CPT/HCPCS: 36415; 76830; 76856; 80053; 81003; 81015; 81025; 83690; 85025; 87086; 93005; 93010; 93975; 96374; 96375; 99284; J2060; J2270; J2405

== ENCOUNTER → 2024-04-01 12:49 | Outpatient (CLI) | payer OTHER, SELFPAY | PROVIDERS: Family Provider Family Medicine; PCP Family Medicine; Referring Provider Family Medicine; Visit Provider Family Medicine | DX: J45.20 Mild intermittent asthma, uncomplicated (principal) | CPT/HCPCS: 94060; 94726; 94729 ==